=== PATIENT | female | born 1965 | race Caucasian/White ===

== ENCOUNTER 2017-03-29 23:20 | Emergency (ER) | payer BC ==
[2017-03-29 23:40] VITALS: BP 138/84
--- NOTE | 2017-03-29 23:44 | EDM.PDOC ---
ED HPI GENERAL MEDICAL PROBLEM - General Chief Complaint: Eye Problems Stated Complaint: CUT ABOVE RIGHT EYE Time Seen by Provider: 03/29/17 23:45 Source of Information: Reports: Patient History Limitations: Reports: No Limitations - History of Present Illness INITIAL COMMENTS - FREE TEXT/NARRATIVE: Sophia is a 51 year old female who presents to the ER after falling on the ice around 2130 this evening. She reports she was out feeding her dogs and slipped and fell on the ice. She fell face forward and landed on her face. She reports she had her glasses on and they made a small laceration to her right eyelid. She denies LOC at the time of injury. Denies any headache, dizziness, lightheadedness, vision changes. She does note some tenderness over her right cheek. Other than that she is feeling fine and has no other complaints. Onset: Today Onset Date: 03/30/17 Onset Time: 21:30 Location: Reports: Head Severity: Mild Associated Symptoms: Reports: No Other Symptoms. Denies: Confusion, Chest Pain , Cough, cough w sputum, Diaphoresis, Fever/Chills, Headaches, Loss of Appetite , Malaise, Nausea/Vomiting, Rash, Seizure, Shortness of Breath, Syncope, Weakness Left Upper Eye Pain Score (Numeric/FACES): 3 - Related Data Allergies Allergy/AdvReac Type Severity Reaction Status Date / Time Sulfa (Sulfonamide Allergy Cannot Verified 02/23/16 12:47 Antibiotics) Remember Home Meds: Home Meds Biotin 1 tab PO DAILY 01/17/14 [History] Fish Oil/Borage/Flax/Om3,6,9#1 [[place] 3-6-9 Complex Softgel] 1 cap PO DAILY [History] Magnesium Oxide [Magnesium] 400 mg PO DAILY 01/17/14 [History] Multivitamin [Daily Multiple Vitamin] 1 tab PO DAILY 01/17/14 [History] Pantoprazole Sodium 40 mg PO DAILY 01/17/14 [History] Turmeric Root Extract [Turmeric] 1 cap PO DAILY 01/17/14 [History] Vitamin B Complex [B Complex] 1 cap PO DAILY 01/17/14 [History] Bimatoprost [Latisse] 1 drop EYEBOTH QPM 05/01/15 [History] Past Medical History - Past Health History Medical/Surgical History: Denies Medical/Surgical History Social & Family History - Tobacco Use Smoking Status *Q: Never Smoker - Caffeine Use Caffeine Use: Reports: Soda - Recreational Drug Use Recreational Drug Use: No ED ROS GENERAL - Review of Systems Review Of Systems: ROS reveals no pertinent complaints other than HPI. Constitutional: Reports: No Symptoms. Denies: Fever, Chills, Weakness, Fatigue HEENT: Reports: Glasses. Denies: Ear Discharge, Ear Pain, Eye Discharge, Eye Pain, Hearing Loss, Nosebleed, Nose Pain, Rhinitis, Sinus Problem, Throat Pain, Throat Swelling, Vertigo, Vision Change Respiratory: Reports: No Symptoms. Denies: Shortness of Breath Cardiovascular: Reports: No Symptoms. Denies: Chest Pain Skin: Reports: Other (laceration to right eyelid) Neurological: Reports: No Symptoms. Denies: Confusion, Dizziness, Headache, Numbness, Paresthesia, Pre-Existing Deficit, Seizure, Syncope, Tingling, Tremors , Trouble Speaking, Difficulty Walking, Weakness, Change in Speech, Gait Disturbance Psychiatric: Reports: No Symptoms Hematologic/Lymphatic: Reports: No Symptoms Immunologic: Reports: No Symptoms ED EXAM GENERAL W FULL EYE - Physical Exam Exam: See Below Exam Limited By: No Limitations General Appearance: Alert, WD/WN, No Apparent Distress Eye Exam: Bilateral Eye: EOMI, Normal Fundi, Normal Inspection, PERRL Eyelids: Right: Edema, Ecchymosis Conjunctiva & Sclera: Bilateral: Normal Appearance Cornea Exam: Bilateral: Normal Appearance Extraocular Movements: Bilateral: Intact Pupils: Normal Accommodation Pupillary Reaction: Bilateral: Brisk Ears: Normal External Exam, Normal Canal, Hearing Grossly Normal, Normal TMs Nose: Normal Inspection, Normal Mucosa, No Blood Throat/Mouth: Normal Inspection, Normal Lips, Normal Teeth, Normal Gums, Normal Oropharynx, Normal Voice, No Airway Compromise Head: Atraumatic, Normocephalic Neck: Normal Inspection, Supple, Non-Tender, Full Range of Motion Respiratory/Chest: No Respiratory Distress, Lungs Clear, Normal Breath Sounds, No Accessory Muscle Use, Chest Non-Tender Cardiovascular: Normal Peripheral Pulses, Regular Rate, Rhythm, No Edema, No Gallop, No JVD, No Murmur, No Rub Extremities: Normal Inspection, Normal Range of Motion, Non-Tender, Normal Capillary Refill, No Pedal Edema Neurological: Alert, Oriented, CN II-XII Intact, Normal Cognition, Normal Gait, Normal Reflexes, No Motor/Sensory Deficits Psychiatric: Normal Affect, Normal Mood Skin Exam: Other (laceration to right eyelid & right cheek) Lymphatic: No Adenopathy Course - Vital Signs Last Recorded V/S: Last Vital Signs Temp 97 F 03/29/17 23:39 Pulse 92 03/29/17 23:39 Resp 18 03/29/17 23:39 BP 138/84 03/29/17 23:39 Pulse Ox 98 03/29/17 23:39 - Re-Assessments/Exams Free Text/Narrative Re-Assessment/Exam: Right eyelid laceration close with skin glue and steri strips. Patient tolerated well. Bleeding controlled. Departure - Departure Time of Disposition: 23:41 Disposition: Home, Self-Care 01 Condition: Good Clinical Impression: Eyebrow laceration Qualifiers: Encounter type: initial encounter Laterality: right Qualified Code(s): S01.111A - Laceration without foreign body of right eyelid and periocular area, initial encounter Fall from slipping on ice Qualifiers: Encounter type: initial encounter Qualified Code(s): W00.9XXA - Unspecified fall due to ice and snow, initial encounter - Discharge Information Forms: ED Department Discharge Additional Instructions: Ice affected area for ~20 minutes at a time 3 times per day Tylenol or ibuprofen as needed for pain Shower as normal. Avoid soaking in bath. Steri strips will fall off on their own. Skin glue will go away with time once wound is healed. Follow up with PCP if pain in right cheek does not resolve over next 3-4 days. May need imaging if pain worsens or does not improve. Facial bones appear intact. Return to ER for any worsening of condition
== END 2017-03-29 23:50 | disposition home or self-care (01) ==
LOC: CC.ED 23:20
DX: S01.111A Laceration without foreign body of right eyelid and periocular area, initial encounter (principal); W00.9XXA Unspecified fall due to ice and snow, initial encounter; Z88.2 Allergy status to sulfonamides; Z79.899 Other long term (current) drug therapy
CPT/HCPCS: 99283